=== PATIENT | male | born 1980 | race Caucasian/White ===

== ENCOUNTER 2025-05-23 19:54 | Emergency (ER) | payer BC ==
[2025-05-23] MEDS: Diphtheria,Pertussis(Acell),Tetanus Vaccine 0.5 ML Syringe IM ONE (20:54)
[2025-05-23] MEDS: Ketorolac 30 MG/ML SDV IM ONE (20:54)
== END 2025-05-23 22:05 | disposition home or self-care (01) ==
LOC: JD.ED 19:54
DX: S91.312A Laceration without foreign body, left foot, initial encounter (principal); S91.012A Laceration without foreign body, left ankle, initial encounter; Z23 Encounter for immunization; W20.8XXA Other cause of strike by thrown, projected or falling object, initial encounter; Y93.89 Activity, other specified
CPT/HCPCS: 12002; 73630; 90471; 90715; 96372; 99283; J1885; J3490